=== PATIENT | female | born 1950 | race Caucasian/White ===

== ENCOUNTER 2018-03-29 13:33 | Emergency (ER) | payer BC ==
[~2018-03-29] VITALS: Ht 162.6 cm; Wt 69.0 kg
[~2018-03-29 13:33] MED LIST: ASPI81EC PO; METO50ER PO; Protonix40 MG PO
[2018-03-29] MEDS ORDERED: ASPI81CH PO (13:42)
[2018-03-29] MEDS ORDERED: Norco 5-325 Ta1 EACH PO (14:40)
[2018-03-29] MEDS ORDERED: Zofran8 MG PO (15:31)
== END 2018-03-29 15:25 | disposition home or self-care (01) ==
LOC: ER 13:33
DX: S42.022A Displaced fracture of shaft of left clavicle, initial encounter for closed fracture (principal); W01.198A Fall on same level from slipping, tripping and stumbling with subsequent striking against other object, initial encounter; K21.9 Gastro-esophageal reflux disease without esophagitis; Z79.899 Other long term (current) drug therapy; Z79.82 Long term (current) use of aspirin
CPT/HCPCS: 73000; 96374; 96375; 99283-25; J1170; J2405

== ENCOUNTER 2018-04-03 12:16 | Day surgery (SDC) | payer BC ==
[~2018-04-03] VITALS: Ht 162.6 cm; Wt 69.0 kg
[~2018-04-03 12:16] MED LIST changes: +ASPI81CH PO; +Norco 5-325 Ta1 EACH PO; +Zofran8 MG PO
--- NOTE | 2018-04-03 13:14 | NUR ---
History, Chart, Medications and Allergies reviewed before start of procedure. Lungs clear T/O to Auscultation. Patient confirms NPO status and agrees with scheduled surgery. Patient States Post-Procedure ride home has been arranged. 2 IV ATTEMPTS BY SIMA SMITH.
--- NOTE | 2018-04-03 13:30 | NUR ---
PT AMB TO BATHROOM WITH STANDBY ASSISTANCE
--- NOTE | 2018-04-03 18:32 | NUR ---
Patient up to Ambulate independently. Gait steady. Discharge instructions reviewed with patient. Patient verbalizes understanding. Copy given to patient to take home. Dressing to procedure site clean, dry, intact with no visible drainage, swelling, erythema or bruising noted. Aquacell in place. Patient States Post-Procedure ride home has been arranged. Discharged via wheelchair to private car for ride home.
== END 2018-04-03 22:38 | disposition home or self-care (01) ==
LOC: ORSCMMR 12:16
PROVIDERS: Orthopaedic Surgery
PROC: 0PSB04Z Reposition Left Clavicle with Internal Fixation Device, Open Approach (ICD-10-PCS; principal; 2018-04-03 13:35)
DX: S42.022A Displaced fracture of shaft of left clavicle, initial encounter for closed fracture (principal); I10 Essential (primary) hypertension; Z79.899 Other long term (current) drug therapy; Z79.82 Long term (current) use of aspirin
CPT/HCPCS: 73000; C1713; J0690; J1100; J1885; J2370; J2405; J3010; J7120

== ENCOUNTER 2018-04-14 04:41 | Emergency (ER) | payer BC ==
[~2018-04-14] VITALS: Ht 162.6 cm; Wt 69.0 kg
[2018-04-14] MEDS ORDERED: TRAM50 (05:38)
[2018-04-14 06:02] LABS: BASOPHILS ABSOLUTE AUTO 0.04 K/mm3 (0.00-0.23); BASOPHILS PERCENT AUTO 0 % (0-2); EOSINOPHILS ABSOLUTE AUTO 0.09 K/mm3 (0.00-0.68); EOSINOPHILS PERCENT AUTO 1 % (0-6); Hematocrit 40.8 % (33.0-51.0); Hemoglobin 13.3 g/dL (11.5-16.0); IMMATURE GRAN PERCENT AUTO 1 % (0-1); LYMPHOCYTES ABSOLUTE AUTO 1.54 K/mm3 (0.84-5.20); LYMPHOCYTES PERCENT AUTO 8 % (21-46); MONOCYTES ABSOLUTE AUTO 1.94 K/mm3 (0.16-1.47); MONOCYTES PERCENT AUTO 11 % (4-13); Mean Corpuscular HGB 28.4 pg (26.0-34.0); Mean Corpuscular HGB Conc 32.6 g/dL (31.5-36.5); Mean Corpuscular Volume 87 fL (80-100); Mean Platelet Volume 9.9 fL (9.1-12.4); NEUTROPHILS ABSOLUTE AUTO 14.63 K/mm3 (1.96-9.15); NEUTROPHILS PERCENT AUTO 80 % (41-73); Platelet Count 246 K/mm3 (150-400); RDW Coefficient Variation 13.7 % (11.7-14.2); Red Blood Cell Count 4.69 M/mm3 (3.80-5.20); White Blood Cell Count 18.34 K/mm3 (4.00-11.30)
[2018-04-14 06:12] LABS: Source, Urine Clean Catch
[2018-04-14 06:14] LABS: Blood, Urine 4+ (Neg); Glucose Qualitative, Urine Neg (Neg); Ketones, Urine Neg (Neg); Leukocyte Esterase, Urine 2+ (Neg); Nitrite, Urine Neg (Neg); Protein, Urine 2+ (Neg); Urobilinogen, Urine 1+ (Normal)
[2018-04-14 06:15] LABS: Appearance, Urine Hazy (Clear); Bilirubin, Urine 1+ (Neg); Color, Urine Yellow (P-Yellow)
[2018-04-14 06:21] LABS: Amorphous Light (0-Heavy); Bacteria Mod /hpf; Calcium Oxalate Crystals Few /hpf; Granular Casts 0-2 /lpf (0); Mucus Light (0-Heavy); Red Blood Cells, Urine 0-2 /hpf (0-2); Squamous Epithelial Cells Few /hpf (Few)
[2018-04-14 06:42] LABS: Alanine Aminotransfer (ALT/SGP 25 U/L (12-78); Albumin, Blood 3.2 g/dL (3.4-5.0); Albumin/Globulin Ratio 0.8 (0.8-1.8); Alk Phos 83 U/L (50-136); Anion Gap 8 mmol/L (6-16); Aspartate Aminotrans (AST/SGOT 21 U/L (12-37); Bilirubin, Total 2.2 mg/dL (0.1-1.0); Blood Urea Nitrogen 10 mg/dL (8-24); Bun/Creatinine Ratio 14.9 (12.0-20.0); CO2, Blood 26 mmol/L (21-32); Calcium, Blood 9.7 mg/dL (8.5-10.1); Chloride, Blood 105 mmol/L (98-108); Creatinine, Blood 0.67 mg/dL (0.40-1.00); Globulin, Blood 3.9 g/dL (2.2-4.0); Glomerular Filtration Rate >60 (60-); Glucose, Blood 115 mg/dL (70-99); Magnesium, Blood 2.2 mg/dL (1.6-2.4); Potassium, Blood 3.9 mmol/L (3.5-5.5); Sodium, Blood 139 mmol/L (136-145); Total Protein, Blood 7.1 g/dL (6.4-8.2); Troponin I <0.015 ng/mL (0.000-0.040)
[2018-04-14] MEDS ORDERED: ELIQUIS5 MG PO (08:35)
[2018-04-14] MEDS ORDERED: Percocet 10-321 EACH PO (08:35)
== END 2018-04-14 09:12 | disposition home or self-care (01) ==
LOC: ER 04:41
PROVIDERS: Emergency Medicine
DX: I26.99 Other pulmonary embolism without acute cor pulmonale (principal); S42.002D Fracture of unspecified part of left clavicle, subsequent encounter for fracture with routine healing; X58.XXXA Exposure to other specified factors, initial encounter; Z79.82 Long term (current) use of aspirin; Z79.891 Long term (current) use of opiate analgesic; Z79.899 Other long term (current) drug therapy
CPT/HCPCS: 36415; 71046; 71260; 80053; 81001; 83735; 84484; 85025; 87086; 93005; 93010; 96374; 99285-25; J2405; J3010; Q9967

== ENCOUNTER → 2018-11-29 | Outpatient (CLI) | payer BC ==
[~2018-11-29] MED LIST changes: +ELIQUIS5 MG PO; +Percocet 10-321 EACH PO; +TRAM50
[2018-11-29 16:48] LABS: Campylobacter Sp Not Detected (NOT DETECT)
[2018-11-29 16:49] LABS: Adenovirus F 40/41 Not Detected (NOT DETECT); Astrovirus Not Detected (NOT DETECT); Cryptosporidium Not Detected (NOT DETECT); Cyclospora Cayetanensis Not Detected (NOT DETECT); E. Coli O157 Not Detected (NOT DETECT); Entamoeba Histolytica Not Detected (NOT DETECT); Enteroaggregative E. coli-EAEC Not Detected (NOT DETECT); Enteropathogenic E. coli-EPEC Not Detected (NOT DETECT); Enterotoxigenic E. coli-ETEC Not Detected (NOT DETECT); Giardia Lamblia Not Detected (NOT DETECT); Norovirus GI/GII Not Detected (NOT DETECT); Plesiomonas Shigelloides Not Detected (NOT DETECT); Rotavirus A Not Detected (NOT DETECT); Salmonella Sp Not Detected (NOT DETECT); Sapovirus Not Detected (NOT DETECT); Shiga Toxin-prod E. coli-STEC Not Detected (NOT DETECT); Shigella/Enteroin E. coli-EIEC Not Detected (NOT DETECT); Vibrio Cholerae Not Detected (NOT DETECT); Vibrio Sp Not Detected (NOT DETECT); Yersinia Enterocolitica Not Detected (NOT DETECT)
== END ==
LOC: LAB EV 06:40
PROVIDERS: Nurse Practitioner Family
DX: A06.1 Chronic intestinal amebiasis (principal)
CPT/HCPCS: 0097U

== ENCOUNTER 2019-03-10 13:44 | Day surgery (SDC) | payer BC ==
[~2019-03-10] VITALS: Ht 160 cm; Wt 65.0 kg
[~2019-03-10 13:44] MED LIST changes: +ALEN70; +Bentyl20 MG; +FAMO20; +ONDA4ODT
[2019-03-10] MEDS ORDERED: BISA5EC (14:10)
--- NOTE | 2019-03-10 15:28 | NUR ---
03/10/19 1528 Mary Richards SIMETHICONE USED DURING PROCEDURE.
== END 2019-03-10 16:26 | disposition home or self-care (01) ==
LOC: ORSCSDS 13:44
PROVIDERS: Student in an Organized Health Care Education/Training Program
PROC: 0DBP8ZX Excision of Rectum, Via Natural or Artificial Opening Endoscopic, Diagnostic (ICD-10-PCS; principal; 2019-03-10 15:00)
PROC: 0DBN8ZX Excision of Sigmoid Colon, Via Natural or Artificial Opening Endoscopic, Diagnostic (ICD-10-PCS; principal; 2019-03-10 15:00)
DX: R19.7 Diarrhea, unspecified (principal); R14.0 Abdominal distension (gaseous); R10.9 Unspecified abdominal pain; K21.9 Gastro-esophageal reflux disease without esophagitis; D12.5 Benign neoplasm of sigmoid colon; K62.1 Rectal polyp; K52.9 Noninfective gastroenteritis and colitis, unspecified; Z79.899 Other long term (current) drug therapy
CPT/HCPCS: 88305; J2704; J7120

== ENCOUNTER → 2019-04-28 | Outpatient (CLI) | payer BC ==
[~2019-04-28] MED LIST changes: +BISA5EC
== END | disposition home or self-care (01) ==
LOC: LAB 14:09 → LAB SHORT 14:09
DX: N39.0 Urinary tract infection, site not specified (principal)
CPT/HCPCS: 87086

== ENCOUNTER 2022-10-31 08:08 | Emergency (ER) | payer MEDICARE ==
[~2022-10-31] VITALS: Ht 160 cm; Wt 68.0 kg
[2022-10-31] MEDS ORDERED: GABA100 PO (08:43)
[2022-10-31 08:45] LABS: BASOPHILS ABSOLUTE AUTO 0.05 K/mm3 (0.00-0.23); BASOPHILS PERCENT AUTO 1 % (0-2); EOSINOPHILS ABSOLUTE AUTO 0.15 K/mm3 (0.00-0.68); EOSINOPHILS PERCENT AUTO 3 % (0-6); Hematocrit 45.7 % (33.0-51.0); IMMATURE GRAN ABSOLUTE AUTO 0.01 K/mm3 (0.00-0.10); IMMATURE GRAN PERCENT AUTO 0 % (0-1); LYMPHOCYTES ABSOLUTE AUTO 2.02 K/mm3 (0.84-5.20); LYMPHOCYTES PERCENT AUTO 39 % (21-46); MONOCYTES ABSOLUTE AUTO 0.73 K/mm3 (0.16-1.47); MONOCYTES PERCENT AUTO 14 % (4-13); Mean Corpuscular HGB 28.6 pg (26.0-34.0); Mean Corpuscular HGB Conc 32.8 g/dL (31.5-36.5); Mean Corpuscular Volume 87 fL (80-100); Mean Platelet Volume 11.4 fL (9.1-12.4); NEUTROPHILS PERCENT AUTO 43 % (41-73); Platelet Count 202 K/mm3 (150-400); RDW Coefficient Variation 13.6 % (11.7-14.2); RDW Standard Deviation 43.3 fL (35.1-46.3); Red Blood Cell Count 5.25 M/mm3 (3.80-5.20); White Blood Cell Count 5.16 K/mm3 (4.00-11.30)
[2022-10-31 08:58] LABS: Albumin, Blood 3.8 g/dL (3.4-5.0); Albumin/Globulin Ratio 1.2 (0.8-1.8); Bilirubin, Total 1.7 mg/dL (0.1-1.0); Bun/Creatinine Ratio 12.7 (12.0-20.0); Creatinine, Blood 0.79 mg/dL (0.40-1.00); Globulin, Blood 3.3 g/dL (2.2-4.0); Total Protein, Blood 7.1 g/dL (6.4-8.2)
[2022-10-31 11:15] VITALS: BP 132/64
== END 2022-10-31 11:37 | disposition home or self-care (01) ==
LOC: ER 08:08
PROVIDERS: Emergency Medicine
DX: K44.9 Diaphragmatic hernia without obstruction or gangrene (principal); K21.9 Gastro-esophageal reflux disease without esophagitis; Z88.8 Allergy status to other drugs, medicaments and biological substances; Z79.899 Other long term (current) drug therapy
CPT/HCPCS: 71046; 80053; 84484; 85025; 93005; 93010; 99285-25; A9270

== ENCOUNTER 2024-04-17 10:05 | Day surgery (SDC) | payer MEDICARE ==
[~2024-04-17] VITALS: Ht 160 cm; Wt 68.1 kg
[~2024-04-17 10:05] MED LIST changes: +GABA100 PO; +Lactated Ringer's 1,000 ML IV ONE; +propofoL 50 ML IV ONE
[2024-04-17] MEDS ORDERED: ACETAMINOPHEN500 MG (10:24)
[2024-04-17] MEDS ORDERED: CENTRUM SILVER1 EAC2 (10:26)
[2024-04-17] MEDS ORDERED: [UNRECOGNIZED DRUG - OTHER] (10:26)
[2024-04-17] MEDS ORDERED: Lactated Ringer's 1,000 ML IV ONE (10:54)
[2024-04-17 12:30] VITALS: BP 111/60
== END 2024-04-17 12:07 | disposition home or self-care (01) ==
LOC: ORSCSDS 10:05
PROVIDERS: Specialist
PROC: 0DBH8ZX Excision of Cecum, Via Natural or Artificial Opening Endoscopic, Diagnostic (ICD-10-PCS; principal; 2024-04-17 11:30)
DX: Z12.11 Encounter for screening for malignant neoplasm of colon (principal); Z86.0101 Personal history of adenomatous and serrated colon polyps; D12.0 Benign neoplasm of cecum; K64.8 Other hemorrhoids; K58.2 Mixed irritable bowel syndrome; Z79.899 Other long term (current) drug therapy
CPT/HCPCS: 88305; J2704; J7120

== ENCOUNTER 2024-12-01 14:13 | Emergency (ER) | payer MEDICARE ==
[~2024-12-01] VITALS: Ht 160 cm; Wt 67.1 kg
[~2024-12-01 14:13] MED LIST changes: +ACETAMINOPHEN500 MG; +CENTRUM SILVER1 EAC2; -Lactated Ringer's 1,000 ML IV ONE; +[UNRECOGNIZED DRUG - OTHER]; -propofoL 50 ML IV ONE
[2024-12-01] MEDS ORDERED: NS 1,000 ML IV SCH (14:35)
[2024-12-01 14:55] LABS: BASOPHILS ABSOLUTE AUTO 0.06 K/mm3 (0.00-0.23); BASOPHILS PERCENT AUTO 1 % (0-2); EOSINOPHILS ABSOLUTE AUTO 0.21 K/mm3 (0.00-0.68); EOSINOPHILS PERCENT AUTO 2 % (0-6); Hematocrit 44.8 % (33.0-51.0); Hemoglobin 14.9 g/dL (11.5-16.0); IMMATURE GRAN ABSOLUTE AUTO 0.04 K/mm3 (0.00-0.10); IMMATURE GRAN PERCENT AUTO 0 % (0-1); LYMPHOCYTES ABSOLUTE AUTO 1.90 K/mm3 (0.84-5.20); LYMPHOCYTES PERCENT AUTO 20 % (21-46); MONOCYTES ABSOLUTE AUTO 1.03 K/mm3 (0.16-1.47); MONOCYTES PERCENT AUTO 11 % (4-13); Mean Corpuscular HGB Conc 33.3 g/dL (31.5-36.5); Mean Corpuscular Volume 88 fL (80-100); NEUTROPHILS ABSOLUTE AUTO 6.47 K/mm3 (1.96-9.15); NEUTROPHILS PERCENT AUTO 67 % (41-73); NRBC ABSOLUTE 0.00 K/mm3 (0.00-0.02); NRBC Auto 0.0 /100 WBC (0.0-0.2); Platelet Count 221 K/mm3 (150-400); RDW Coefficient Variation 13.5 % (11.7-14.2); RDW Standard Deviation 43.8 fL (35.1-46.3)
[2024-12-01 15:18] LABS: Alanine Aminotransfer (ALT/SGP 22.0 U/L (12-78); Albumin, Blood 3.8 g/dL (3.4-5.0); Albumin/Globulin Ratio 1.1 (0.8-1.8); Anion Gap 7.0 mmol/L (3-11); Aspartate Aminotrans (AST/SGOT 27.0 U/L (12-37); Bilirubin, Total 1.6 mg/dL (0.1-1.0); Blood Urea Nitrogen 18.0 mg/dL (8-24); CO2, Blood 27.0 mmol/L (21-32); Calcium, Blood 10.8 mg/dL (8.5-10.1); Chloride, Blood 103.0 mmol/L (98-108); Creatinine, Blood 0.81 mg/dL (0.40-1.00); Globulin, Blood 3.4 g/dL (2.2-4.0); Glucose, Blood 110.0 mg/dL (70-99); Potassium, Blood 4.1 mmol/L (3.5-5.5); Sodium, Blood 133.0 mmol/L (136-145); Total Protein, Blood 7.2 g/dL (6.4-8.2)
[2024-12-01 16:59] LABS: Source, Urine Clean Catch
[2024-12-01 17:07] LABS: Bilirubin, Urine Neg (Neg); Glucose Qualitative, Urine Neg (Neg); Ketones, Urine Neg (Neg); Leukocyte Esterase, Urine 1+ (Neg); Protein, Urine 1+ (Neg); Specific Gravity, Urine 1.010 (1.003-1.022); Urobilinogen, Urine NORM (Normal)
[2024-12-01 17:37] LABS: Color, Urine Pale Yellow (P-Yellow)
[2024-12-01] MEDS ORDERED: RX Prepack 6 Tabs Oxycodone 5mg UD ONE (18:40)
[2024-12-01] MEDS ORDERED: RX Prepack 2 Tabs Ondansetron ODT 4MG UD ONE (18:40)
[2024-12-01] MEDS ORDERED: ONDA4ODT MM (18:44)
[2024-12-01] MEDS ORDERED: Percocet 5-3251 EACH PO (18:44)
[2024-12-01] MEDS ORDERED: IBUP800 PO (18:44)
[2024-12-01] MEDS ORDERED: TAMS.4ER PO (18:44)
[2024-12-01] MEDS ORDERED: Ketorolac Tromethamine 15mg Vial IV ONE (19:35)
[2024-12-01 21:15] VITALS: BP 116/63
== END 2024-12-01 21:20 | disposition home or self-care (01) ==
LOC: ER 14:13
PROVIDERS: Student in an Organized Health Care Education/Training Program
DX: N13.2 Hydronephrosis with renal and ureteral calculous obstruction (principal); I77.3 Arterial fibromuscular dysplasia
CPT/HCPCS: 70498; 74177; 80053; 81001; 83690; 85025; 87086; 96361; 96374-59; 99284-25; A9270; J1885; J7030; Q9967

== ENCOUNTER → 2024-12-16 | Outpatient (CLI) | payer MEDICARE ==
[~2024-12-16] MED LIST changes: +IBUP800 PO; +ONDA4ODT MM; +Percocet 5-3251 EACH PO; +TAMS.4ER PO
[2024-12-16 13:28] LABS: Source, Urine Voided
[2024-12-16 15:14] LABS: Bilirubin, Urine Neg (Neg); Color, Urine Yellow (P-Yellow); Glucose Qualitative, Urine Neg (Neg); Ketones, Urine Neg (Neg); Leukocyte Esterase, Urine 1+ (Neg); Protein, Urine 1+ (Neg); Specific Gravity, Urine 1.025 (1.003-1.022); Urobilinogen, Urine NORM (Normal)
== END ==
LOC: LAB SHORT 11:49 → LAB 11:49
PROVIDERS: Obstetrics & Gynecology
DX: R30.0 Dysuria (principal)
CPT/HCPCS: 81001; 87086